=== PATIENT | female | born 1970 | race Caucasian/White ===

== ENCOUNTER → 2020-12-06 | Outpatient (CLI) | payer BC | END | disposition home or self-care (01) | LOC: SHCH 11:17 | PROVIDERS: ATTEND Internal Medicine Cardiovascular Disease | DX: R00.2 Palpitations (principal) | CPT/HCPCS: 93306; 93356 ==

== ENCOUNTER → 2022-02-21 | Outpatient (CLI) | payer BC | END | disposition home or self-care (01) | LOC: SHCH 08:07 | PROVIDERS: ATTEND Internal Medicine Cardiovascular Disease | DX: R06.09 Other forms of dyspnea (principal); R00.2 Palpitations; R42 Dizziness and giddiness; I87.9 Disorder of vein, unspecified | CPT/HCPCS: 93306 ==

== ENCOUNTER → 2024-06-29 | Outpatient (CLI) | payer BC | END | disposition home or self-care (01) | LOC: SHCH 15:18 | PROVIDERS: ATTEND Internal Medicine Cardiovascular Disease | DX: R00.2 Palpitations (principal); R07.9 Chest pain, unspecified; R06.09 Other forms of dyspnea | CPT/HCPCS: 93306 ==

== ENCOUNTER → 2025-01-25 | Outpatient (CLI) | payer OTHER ==
--- NOTE | 2025-01-25 16:22 | HMCIMG ---
CT HEART SAVER PROMOTIONAL HISTORY: Cardiac calcification scoring. FINDINGS: The cardiac calcification scoring is 0. Limited examination of the heart was performed. The study is done for additional or incidental findings. IMPRESSION: No additional findings.
== END | disposition home or self-care (01) ==
LOC: RAH 15:44
PROVIDERS: ATTEND Internal Medicine Cardiovascular Disease
DX: Z13.6 Encounter for screening for cardiovascular disorders (principal)
CPT/HCPCS: 75571